=== PATIENT | female | born 1995 | race Caucasian/White ===

== ENCOUNTER 2020-05-14 13:43 | Outpatient (RCR) | payer OTHER, SELFPAY ==
[2020-05-14 14:56] LABS: Basophils Absolute Auto 0.1 K/mm3 (0.0-0.1); Basophils Percent Auto 0.5 % (0.2-1.2); Eosinophils Percent Auto 13.9 % (0-4.4); Hematocrit 45.7 % (37.0-47.0); Hemoglobin 15.1 g/dL (12.0-15.0); Immature Granulocyte Absolute 0.05 K/mm3 (0.00-0.031); Immature Granulocyte Percent A 0.4 % (0-0.5); Lymphocytes Absolute Auto 3.68 K/mm3 (0.9-3.2); Mean Corpuscular Hemoglobin 32.6 pg (26-34); Mean Corpuscular Volume 98.7 fl (80-100); Mean Platelet Volume 12.4 fl (7.4-10.4); Neutrophils Absolute Auto 7.4 K/mm3 (1.3-6.7); Neutrophils Percent Auto 52.2 % (45.5-73.1); Platelet Count Result 200 k/mm3 (150-375); Red Blood Count 4.63 M/mm3 (4.2-5.4); Red Cell Distribution Width 13.6 % (11.5-14.5); White Blood Count 14.1 K/mm3 (4.5-10.0)
[2020-05-14 15:04] LABS: Blood Urea Nitrogen 9 mg/dL (7-17); Calcium 9.3 mg/dL (8.4-10.2); Carbon Dioxide 26 mmol/L (22-30); Chloride 108 mmol/L (98-107); Estimated Glomerular Filt Rate > 60; Glucose 89 mg/dL (65-105); Potassium 4.4 mmol/L (3.4-5.0); Sodium 141 mmol/L (137-145)
[2020-05-14 15:22] LABS: Beta HCG Quantitative 246.05 mIU/ML
[2020-05-14] MEDS: METHOTREXATE SODIUM/PF 50 MG/2 ML VIAL 48.75 MG IM ×2 (15:32→15:35)
== END 2020-06-06 11:50 | disposition home or self-care (01) ==
LOC: ANHOBOP 13:43
PROVIDERS: PCP Physician Assistant; Visit Provider Obstetrics & Gynecology
DX: O02.1 Missed abortion (principal); Z3A.00 Weeks of gestation of pregnancy not specified
CPT/HCPCS: 36415; 80048; 84702; 85025; 96372; J9260

== ENCOUNTER 2020-05-20 20:10 | Day surgery (SDC) | payer OTHER, SELFPAY ==
--- NOTE | ~2020-05-20 | US_ITS ---
EXAMINATION: US OB <=14 wk fetus w TV DATE: 05/20/2020 21:46 INDICATION: Pelvic pain. Ectopic . Methotrexate treatment last week. TECHNIQUE: Real-time transabdominal and transvaginal pelvic ultrasound was performed. COMPARISON: None. FINDINGS: TRANSABDOMINAL ULTRASOUND: The uterus measures 6.2 x 3.3 cm. TRANSVAGINAL ULTRASOUND: The endometrial complex measures 3 mm in thickness. There is no intrauterine gestational sac. The right ovary measures 2.3 x 1.1 x 1.6 cm. The left ovary measures 2.6 x 1.3 x 2. 5 cm. There is a 1.7 cm mass abutting the left ovary. There is normal vascular flow in the ovaries. T here is a small volume of free fluid in the pelvis. IMPRESSION: 1. Small volume of free fluid in the pelvis. 2. 1.7 cm mass in the left adnexa adjacent to the ovary. The differential diagnosis includes hemorrha gic cyst and ectopic . Reviewed, dictated and finalized at location A. IMPRESSION: 1. Small volume of free fluid in the pelvis. 2. 1.7 cm mass in the left adnexa adjacent to the ovary. The differential diagn osis includes hemorrhagic cyst and ectopic .
[2020-05-20 20:24] VITALS: BP 113/76; PULSE 82; RESP 17; TEMP 36.8; O2SAT 100
[2020-05-20 20:47] LABS: Basophils Percent Auto 0.3 % (0.2-1.2); Eosinophils Absolute Auto 1.6 K/mm3 (0-0.3); Eosinophils Percent Auto 12.1 % (0-4.4); Hematocrit 42.1 % (37.0-47.0); Hemoglobin 14.2 g/dL (12.0-15.0); Immature Granulocyte Absolute 0.03 K/mm3 (0.00-0.031); Immature Granulocyte Percent A 0.2 % (0-0.5); Lymphocytes Absolute Auto 2.97 K/mm3 (0.9-3.2); Lymphocytes Percent Auto 22.4 % (18.3-44.2); Mean Corpuscular HGB Conc 33.7 g/dl (32-36); Mean Corpuscular Hemoglobin 32.6 pg (26-34); Mean Corpuscular Volume 96.6 fl (80-100); Mean Platelet Volume 12.4 fl (7.4-10.4); Monocytes Percent Auto 7.6 % (2.6-8.5); Neutrophils Absolute Auto 7.6 K/mm3 (1.3-6.7); Neutrophils Percent Auto 57.4 % (45.5-73.1); Platelet Count Result 186 k/mm3 (150-375); Red Blood Count 4.36 M/mm3 (4.2-5.4); Red Cell Distribution Width 13.5 % (11.5-14.5); White Blood Count 13.2 K/mm3 (4.5-10.0)
[2020-05-20 20:59] LABS: Alanine Aminotransferase 43 U/L (4-35); Albumin Level 4.1 g/dL (3.5-5.1); Alkaline Phosphatase 76 U/L (38-126); Aspartate Amino Transferase 32 U/L (14-36); Bilirubin,Total 0.3 mg/dL (0.2-1.3); Blood Urea Nitrogen 8 mg/dL (7-17); Calcium 8.9 mg/dL (8.4-10.2); Carbon Dioxide 22 mmol/L (22-30); Chloride 106 mmol/L (98-107); Estimated CRCL calculation 127 ml/min; Estimated Glomerular Filt Rate > 60; Glucose 102 mg/dL (65-105); Lipase 52 U/L (23-300); Potassium 3.7 mmol/L (3.4-5.0); Sodium 136 mmol/L (137-145)
--- NOTE | 2020-05-20 22:06 | ED.ABDPAIN ---
HPI - Abdominal Pain General Chief Complaint: Abdominal Pain Stated Complaint: lower abd cramping, pain in left leg Time Seen by Provider: 05/20/20 21:15 Source: patient Mode of arrival: ambulatory Limitations: no limitations History of Present Illness HPI narrative: This patient is a 24 year old female who is G2PO who presents for evaluation of left lower abdominal pain. She states she was diagnosed with an ectopic on the left and she was given an injection of methotrexate on Tuesday. Today she developed left lower abdominal pain cramping that has progressively worsened. She has been having mild vaginal spotting since diagnosis. She denies nausea, vomiting or fever. Her OBGYN is Dr. Mckeon and she reports she was referred to ER for pelvic ultrasound. Pain scale (0-10): 10 Related Data Allergies Allergy/AdvReac Type Severity Reaction Status Date / Time No Known Allergies Allergy Verified 05/20/20 23:53 Review of Systems Review of Systems: All systems reviewed & are unremarkable except as noted in HPI and below PMFSH Past Medical History Medical History Patient denies medical problems Surgical History Surgical History No significant past surgical history Social History Social History Gender identity (if verbalized by the patient): Female Exam Const: General: no acute distress and alert Orientation/consciousness: patient oriented x3 HENMT: Head: normocephalic and atraumatic Face and sinus: face symmetric Mouth: Yes oropharynx normal Eyes: EOM: EOMs intact bilaterally Chest: Chest palpation & inspection: normal inspection of the chest Resp: Effort & Inspection: normal respiratory effort and no retractions Auscultation: clear to auscultation bilaterally Cardio: Rate: regular rate Rhythm: regular rhythm GI: GI Palp: Yes Soft to palpation, Yes Tenderness to palpation present (GI) (LLQ), No Guarding due to palpation present (GI) and No Rigid due to palpation : Speculum Exam - Cervix: Cervical os closed Bimanual exam- vagina & uterus: cervical motion tenderness Skin: General skin exam: normal color Rashes: no rashes Neuro: General: patient oriented x3 and moves all extremities Course Consultations Consultation #1: Dr. liu states she will look at images and call back. Date: 05/20/20 Time: 22:33 Consultation #2: Dr. Liu will take patient to OR Date: 05/21/20 Time: 23:15 Vital Signs Vital signs: Vital Signs Temperature 98.3 F 05/20/20 20:24 Pulse Rate 82 05/20/20 20:24 Respiratory Rate 17 05/20/20 20:24 Blood Pressure 113/76 05/20/20 20:24 Pulse Oximetry 100 05/20/20 20:24 Temperature 97.8 F 05/21/20 01:45 Pulse Rate 83 05/21/20 03:26 Respiratory Rate 12 05/21/20 03:26 Blood Pressure 122/68 05/21/20 03:26 Pulse Oximetry 95 05/21/20 03:01 MDM - Abdominal Pain Lab Data Attestation: I reviewed the patient's lab results. Result diagrams: 05/20/20 20:31 05/20/20 20:31 Labs: Lab Results 05/20/20 05/20/20 05/20/20 Range/Units 20:31 20:31 20:31 WBC 13.2 H (4.5-10.0) K/mm3 RBC 4.36 (4.2-5.4) M/mm3 Hgb 14.2 (12.0-15.0) g/dL Hct 42.1 (37.0-47.0) % MCV 96.6 (80-100) fl MCH 32.6 (26-34) pg MCHC 33.7 (32-36) g/dl RDW 13.5 (11.5-14.5) % Plt Count 186 (150-375) k/mm3 MPV 12.4 H (7.4-10.4) fl Immature Gran % (Auto) 0.2 (0-0.5) % Neut % (Auto) 57.4 (45.5-73.1) % Lymph % (Auto) 22.4 (18.3-44.2) % Real % (Auto) 7.6 (2.6-8.5) % Eos % (Auto) 12.1 H (0-4.4) % Baso % (Auto) 0.3 (0.2-1.2) % Lymph # (Auto) 2.97 (0.9-3.2) K/mm3 Real # (Auto) 1.0 H (0.1-0.6) K/mm3 Eos # (Auto) 1.6 H (0-0.3) K/mm3 Baso # (Auto) 0.0 (0.0-0.1) K/mm3 Abs Immat Gran (auto
[2020-05-20] MEDS: ONDANSETRON INJ 4 MG/2 ML VIAL IV PUSH (22:23)
[2020-05-20] MEDS: MORPHINE SULFATE 4 MG/ML INJ 5 MG IV PUSH (22:23)
[2020-05-20 22:32] LABS: Add Urine Microscopic? YES; Appearance Urine Cloudy (Clear); Bacteria Urine Trace /hpf; Bilirubin Urine Negative (Negative); Blood Urine 3+ (Negative); Calcium Oxalate Crystals Urine Present /hpf; Color Urine Yellow (Yellow); Glucose Urine UA Negative (Negative); Ketones Urine Negative (Negative); Leukocyte Esterase Ur 2+ LEU/UL (Negative); Mucus Urine Moderate /lpf; Nitrate Urine Negative (Negative); Protein Urine 1+ mg/dL (Negative); RBC Urine >75 /hpf (0-2); Squamous Epithelial Cell Urine Many /hpf (Few); WBC Urine 51-75 /hpf
[2020-05-20 22:33] LABS: Specific Grav Ur 1.031 (1.001-1.035)
[2020-05-20 23:13] LABS: Beta HCG Quantitative 71.05 mIU/ML
--- NOTE | 2020-05-20 23:31 | WPDANESEPPF ---
Anes - Initial Pre Proc Eval Procedure: Diagnostic Laparoscopy Date/Time: 05/20/20 23:31 Surgeon: Ian Pre Op Diagnosis: Ectopic Pre Op Diagnosis: lower abd cramping, pain in left leg Patient Data Age: 24 Gender: F Height: 1.55 m Weight: 90 kg Last Vital Signs Temp 36.8 C 05/20/20 20:24 Pulse 82 05/20/20 20:24 Resp 17 05/20/20 20:24 BP 113/76 05/20/20 20:24 Pulse Ox 100 05/20/20 20:24 Allergies Allergy/AdvReac Type Severity Reaction Status Date / Time No Known Allergies Allergy Verified 05/20/20 23:53 Home Medications Medication Instructions Recorded Confirmed Type No Home Medications 05/20/20 05/20/20 History Laboratory Tests 05/20/20 05/20/20 05/20/20 20:31 20:31 20:31 WBC 13.2 K/mm3 H K/mm3 (4.5-10.0) RBC 4.36 M/mm3 M/mm3 (4.2-5.4) Hgb 14.2 g/dL g/dL (12.0-15.0) Hct 42.1 % % (37.0-47.0) MCV 96.6 fl fl (80-100) MCH 32.6 pg pg (26-34) MCHC 33.7 g/dl g/dl (32-36) RDW 13.5 % % (11.5-14.5) Plt Count 186 k/mm3 k/mm3 (150-375) MPV 12.4 fl H fl (7.4-10.4) Immature Gran % (Auto) 0.2 % % (0-0.5) Neut % (Auto) 57.4 % % (45.5-73.1) Lymph % (Auto) 22.4 % % (18.3-44.2) [place] % (Auto) 7.6 % % (2.6-8.5) Eos % (Auto) 12.1 % H % (0-4.4) Baso % (Auto) 0.3 % % (0.2-1.2) Lymph # (Auto) 2.97 K/mm3 K/mm3 (0.9-3.2) [place] # (Auto) 1.0 K/mm3 H K/mm3 (0.1-0.6) Eos # (Auto) 1.6 K/mm3 H K/mm3 (0-0.3) Baso # (Auto) 0.0 K/mm3 K/mm3 (0.0-0.1) Abs Immat Gran (auto) 0.03 K/mm3 K/mm3 (0.00-0.031) Absolute Neuts (auto) 7.6 K/mm3 H K/mm3 (1.3-6.7) Absolute Nucleated RBC 0.0 K/mm3 K/mm3 (0.0-0.012) Nucleated RBC % 0.0 % % (0.0-0.2) Sodium 136 mmol/L L mmol/L (137-145) Potassium 3.7 mmol/L mmol/L (3.4-5.0) Chloride 106 mmol/L mmol/L (98-107) Carbon Dioxide 22 mmol/L mmol/L (22-30) BUN 8 mg/dL mg/dL (7-17) Creatinine 0.60 mg/dL L mg/dL (0.7-1.0) Estim Creat Clear Calc 127 ml/min ml/min Estimated GFR > 60 (59 - ) Glucose 102 mg/dL mg/dL (65-105) Calcium 8.9 mg/dL mg/dL (8.4-10.2) Total Bilirubin 0.3 mg/dL mg/dL (0.2-1.3) AST 32 U/L U/L (14-36) ALT 43 U/L H U/L (4-35) Alkaline Phosphatase 76 U/L U/L (38-126) Total Protein 7.0 g/dL g/dL (6.3-8.2) Albumin 4.1 g/dL g/dL (3.5-5.1) Lipase 52 U/L U/L (23-300) Beta HCG, Quant 71.05 mIU/ML mIU/ML Urine Color Urine Appearance Urine pH Ur Specific [place] Urine Protein Urine Glucose (UA) Urine Ketones Ur Blood (Man) Urine Nitrate Urine Bilirubin Urine Urobilinogen Leukocyte Esterase Rfl Urine RBC Urine WBC Ur Squamous Epith Cells Calcium Oxalate Crystal Urine Bacteria Hyaline Casts Urine Mucus Blood Type Antibody Screen 05/20/20 05/20/20 22:16 22:16 WBC RBC Hgb Hct MCV MCH MCHC RDW Plt Count MPV Immature Gran % (Auto) Neut % (Auto) Lymph % (Auto) [place] % (Auto) Eos % (Auto) Baso % (Auto) Lymph # (Auto) [place] # (Auto) Eos # (Auto) Baso # (Auto) Abs Immat Gran (auto) Absolute Neuts (auto) Absolute Nucleated RBC Nucleated RBC % Sodium Potassium Chloride Carbon Dioxide
[2020-05-21] VITALS (9 sets, daily range): BP systolic 107–131; BP diastolic 68–87; PULSE 76–108; RESP 12–23; TEMP 36.6; O2SAT 93–99
--- NOTE | 2020-05-21 00:03 | PM.IMHP ---
H&P: HPI History of Present Illness Chief complaint: lower abd cramping, pain in left leg Narrative: Felicitas Rahman is a 24 year old female @ ~4wks with suspected ectopic. She received MTX on 05/14/20 after abnormally rising beta HCG's were noted and had a left adnexal mass. Tonight, she began having LLQ pain and took Tylenol. She stated that the pain only became more severe. Repeat US now shows free fluid around the left ovary and in the pelvis to the mid/upper uterus. She reports her pain 10/10. On ER physician vaginal exam, she had mild vaginal spotting and + CMT. She has voluntary guarding. bHCG has declined to 71. Review of Systems Constitutional: Constitutional: Denies body ache(s) Eyes: Eyes: Denies blurry vision Cardiovascular: Cardiovascular: Denies chest pain and Denies palpitations Respiratory: Respiratory: Denies cough and Denies dyspnea Gastrointestinal: Gastrointestinal: Reports abdominal pain (LLQ), Denies nausea and Denies vomiting Genitourinary: Comments: + vaginal spotting Neurologic: Denies vertigo and Denies headache(s) Psychiatric: Psychiatric: Denies anxiety PMFSH Past Medical History Medical History Patient denies medical problems Surgical History Surgical History No significant past surgical history Social History Social History Gender identity (if verbalized by the patient): Female Meds Home Medications and Allergies Home Medications Medication Instructions Recorded Confirmed Type No Home Medications 05/20/20 05/20/20 History Allergies Allergy/AdvReac Type Severity Reaction Status Date / Time No Known Allergies Allergy Verified 05/20/20 23:53 Vital Signs Vital Signs - 24 hr 05/20/20 20:24 Temperature 36.8 C Pulse Rate 82 Respiratory Rate 17 Blood Pressure 113/76 Pulse Oximetry 100 Exam Const: General: no acute distress Resp: Effort & Inspection: normal respiratory effort Cardio: Rate: regular rate GI: Inspection: non-distended GI Palp: Yes Soft to palpation, No Firmness to palpation present (GI), Yes Tenderness to palpation present (GI) and Yes Guarding due to palpation present (GI) Skin: General skin exam: normal color Neuro: Speech: normal speech Psych: Affect: normal affect H&P: Results Labs Labs: Short CBC 05/20/20 Range/Units 20:31 WBC 13.2 H (4.5-10.0) K/mm3 Hgb 14.2 (12.0-15.0) g/dL Hct 42.1 (37.0-47.0) % Plt Count 186 (150-375) k/mm3 BMP 05/20/20 20:31 Sodium 136 L Potassium 3.7 Chloride 106 Carbon Dioxide 22 BUN 8 Creatinine 0.60 L Glucose 102 Calcium 8.9 Liver Function 05/20/20 Range/Units 20:31 Total Bilirubin 0.3 (0.2-1.3) mg/dL AST 32 (14-36) U/L ALT 43 H (4-35) U/L Alkaline Phosphatase 76 (38-126) U/L Albumin 4.1 (3.5-5.1) g/dL Urine 05/20/20 Range/Units 22:16 Urine Color Yellow (Yellow) Urine Appearance Cloudy H (Clear) Urine pH 5.0 (5.0-9.0) Ur Specific [place] 1.031 (1.001-1.035) Urine Protein 1+ H (Negative) mg/dL Urine Glucose (UA) Negative (Negative) mg/dL Assessment and Plan Assessment and plan (1) Ectopic , tubal: Qualifiers: Intrauterine status: without intrauterine Laterality: left Qualified Code(s): O00.102 - Left tubal without intrauterine Code(s): O00.109 - Unspecified tubal without intrauterine Status: Acute Additional Plan - On review of US, pt noted to have free fluid around left ovary and to the mid/upper uterus. With new onset severe pain after methotrexate 7 days ago, concerned for ruptured tubal ectopic - Vitals currently stable - H/h noted to have drop 1 point since last week - Will proceed with diagnost
[2020-05-21] MEDS: LACTATED RINGERS 1,000 ML 30 ML IV CONT (00:30)
--- NOTE | 2020-05-21 01:53 | PM.PROC ---
Procedure Note - Detailed Date of procedure: 05/21/20 Pre-op diagnosis: lower abd cramping, pain in left leg suspected ruptured left tubal ectopic Post-op diagnosis: other (ruptured left ectopic ) Procedure performed: diagnostic laparoscopy and left salpingectomy Description of procedure: Patient was counseled for the above procedure. She was then taken the operating room where she was placed under general endotracheal anesthesia without complications. She was positioned in dorsal lithotomy position with both arms tucked. she was then prepped and draped in the usual sterile fashion. No antibiotics were indicated and a time-out was performed. the bladder was drained using a straight catheter. A bivalve speculum was then placed within the vagina and the anterior lip of the cervix was grasped with a single-tooth tenaculum. The uterus sounded to 7 cm and a diagnostic uterine manipulator was placed without complications. The tenaculum and speculum were then removed. My gloves were then changed and my attention was turned to the umbilicus, which was elevated using Allis clamps. An incision was made in the posterior aspect of the umbilicus. Penetrating towel clamps were then placed at the incision and a 5 mm trocar was placed under direct visualization. once intra-abdominal placement was confirmed the abdomen was insufflated with carbon dioxide gas. The patient was placed in slight Trendelenburg. The uterus was anteverted using the manipulator and hemoperitoneum was immediately noted. Decision was then made to proceed with additional port placements. 5 mm trocars were placed in the left and right lower quadrants under direct visualization without complications and the umbilical port was upsized to a 10 mm port. using a grasper and the left fallopian tube was elevated and 2 masses ( suspected ectopic pregnancies) were noted and bleeding was noted from the fimbriated end. the mesosalpinx was serially clamped, coagulated, and transected paying close attention not to injure the uterine ovarian artery/vein. the fallopian tube was then transected at the cornua. a Endo-Catch bag was then placed within the abdomen and the fallopian tube was placed within the bag. the bag was then removed out the umbilical port with the specimen. the hemoperitoneum was suctioned out of the pelvis. the pelvis was then irrigated and suctioned free. Good hemostasis was noted. Abdominal survey was completed and no additional abnormal findings were noted. The instruments were removed and the insufflation was released. The umbilical incision was repaired in a figure-eight using a 0 Vicryl UR6 stitch. the laparoscopic incisions were then reapproximated using 4 Monocryl and covered with Dermabond. Each laparoscopic incision was infiltrated with 1% lidocaine, approximately 20 cc was used. the uterine manipulator was then removed from the uterus. sponge, lap, needle, and instrument counts were correct x2 at the end the procedure. the patient tolerated the procedure well and was taken recovery in a stable condition with plans to be discharged home same-day. Anesthesia: GETA Surgeon: Ruchi Sosa MD Estimated blood loss (mL): 50 (hemoperitoneum) Urine output (mL): 100 Drains: No Packing: No Pathology: yes Complications: No immediate complications Condition: stable Disposition: same day Findings: ~50cc of hemoperitoneum, left fallopian tubes with two masses (possible ectopic's) with blood coming from the fimbriated end, normal uterus (sounded to 7cm), normal left ovary, normal right fallopian tube and ovary. Blood and clots suction and abdomen irrigated. Good hemostasis at end of case.
[2020-05-21] MEDS: ONDANSETRON INJ 4 MG/2 ML VIAL IV PUSH (03:22)
== END 2020-05-21 03:48 | disposition home or self-care (01) ==
LOC: ANHED 23:32 → ANHSURGERY 23:41
PROVIDERS: Emergency Medicine; Emergency Provider General Practice; PCP Physician Assistant; Visit Provider Obstetrics & Gynecology
PROC: (CPT 49320; principal; 2020-05-20 00:30)
DX: O00.102 Left tubal pregnancy without intrauterine pregnancy (principal); E66.9 Obesity, unspecified; Z68.37 Body mass index [BMI] 37.0-37.9, adult
CPT/HCPCS: 59151; 36415; 76801; 76817; 80053; 81001; 83690; 84702; 85025; 86850; 86900; 86901; 87086; 87088; 88302; 88305; 96374; 96375; 99285; A9270; J0330; J1100; J2250; J2270; J2405; J2704; J7030; J7120

== ENCOUNTER 2021-12-19 21:40 | Emergency (ER) | payer OTHER, MEDICAID, SELFPAY ==
[2021-12-19 21:41] VITALS: BP 130/69; PULSE 124; RESP 18; TEMP 37.6; O2SAT 100
[2021-12-19] MEDS: SODIUM CHLORIDE 0.9% IV 1,000 ML 999 ML IV CONT (22:37)
[2021-12-19 23:07] LABS: Add Urine Microscopic? YES; Appearance Urine Clear (Clear); Bacteria Urine Trace /hpf; Bilirubin Urine Negative (Negative); Blood Urine Negative (Negative); Color Urine Yellow (Yellow); Glucose Urine UA Negative (Negative); Ketones Urine Negative (Negative); Leukocyte Esterase Ur 1+ LEU/UL (Negative); Mucus Urine Rare /lpf; Nitrate Urine Negative (Negative); Protein Urine Negative (Negative); Specific Grav Ur 1.018 (1.001-1.035); Squamous Epithelial Cell Urine Moderate /hpf (Few); Urobilinogen Urine Negative mg/dL (<2.0)
[2021-12-19 23:16] LABS: SARS-CoV-2 RNA PCR Positive
--- NOTE | 2021-12-19 23:48 | ED.FEVER ---
HPI - Fever General Chief Complaint: Fever Stated Complaint: Fever, 11 weeks preg Time Seen by Provider: 12/19/21 22:01 History of Present Illness HPI Narrative: Patient is a 26-year-old female who presents ER with fever. Ongoing over the last day. Highest was 101.0 ?F. Did not respond to Tylenol so she came to the ER. Reports she has had fatigue x2 days. Rhinorrhea began today. No cough. No known sick contacts. Unvaccinated against COVID-19. She is currently 11 weeks . No lower abdominal discomfort. No vaginal bleeding. Denies urinary frequency urgency or dysuria. Related Data Home Medications Medication Instructions Recorded Confirmed levothyroxine 50 12/19/21 Allergies Allergy/AdvReac Type Severity Reaction Status Date / Time No Known Allergies Allergy Verified 12/19/21 21:57 Review of Systems Review of Systems: All systems reviewed & are unremarkable except as noted in HPI and below Constitutional: Constitutional: Denies chills, Reports fatigue and Reports fever(s) ENT: Denies sore throat Comments: Rhinorrhea Respiratory: Respiratory: Denies cough, Denies dyspnea and Denies wheezing Gastrointestinal: Gastrointestinal: Denies abdominal pain, Denies nausea and Denies vomiting Genitourinary: Genitourinary: Denies nocturia, Denies dysuria and Denies flank pain PMFSH Past Medical History Medical History (Updated 12/19/21 @ 23:58 by Macario Rose MD) Patient denies medical problems Surgical History Surgical History No significant past surgical history Social History Social History Gender identity (if verbalized by the patient): Female Exam Narrative: GENERAL: Well-appearing, well-nourished, and in no acute distress. HEAD: Normocephalic, atraumatic. CHEST: Clear to auscultation. No respiratory distress. HEART: Tachycardic and regular. Normal peripheral pulses. ABDOMEN: Soft, nontender, nondistended. EXTREMITIES: Normal range of motion. No edema. SKIN: Warm, dry, no rash. NEURO: Alert and oriented x3. PSYCH: Normal mood and affect. Course Course Emergency Course: Patient resting comfortably. Informed results. Discharge home. Vital Signs Vital signs: Vital Signs Temperature 99.7 F H 12/19/21 21:41 Pulse Rate 124 H 12/19/21 21:41 Respiratory Rate 18 12/19/21 21:41 Blood Pressure 130/69 12/19/21 21:41 Pulse Oximetry 100 12/19/21 21:41 Temperature 99.7 F H 12/19/21 21:41 Pulse Rate 124 H 12/19/21 21:41 Respiratory Rate 18 12/19/21 21:41 Blood Pressure 130/69 12/19/21 21:41 Pulse Oximetry 100 12/19/21 21:41 MDM - Fever Lab Data Labs: Lab Results 12/19/21 12/19/21 Range/Units 22:30 22:30 Urine Color Yellow (Yellow) Urine Appearance Clear (Clear) Urine pH 5.0 (5.0-9.0) Ur Specific [place] 1.018 (1.001-1.035) Urine Protein Negative (Negative) mg/dL Urine Glucose (UA) Negative (Negative) mg/dL Urine Ketones Negative (Negative) mg/dL Ur Blood (Man) Negative (Negative) Urine Nitrate Negative (Negative) Urine Bilirubin Negative (Negative) Urine Urobilinogen Negative (<2.0) mg/dL Leukocyte Esterase Rfl 1+ H (Negative) JANET/UL Urine RBC 3-5 H (0-2) /hpf Urine WBC 4-6 H /hpf Ur Squamous Epith Cells Moderate H (Few) /hpf Urine Bacteria Trace /hpf Urine Mucus Rare /lpf SARS-CoV-2 RNA (RT-PCR) Positive A Influenza A Screen Negative Reference Range: Negative Influenza B Screen Negative Reference Range: Negative Discharge Plan Discharge Clinical Impression: COVID Patient Disposition: Home, Self-Care Condition: Stable Instructions: COVID-19 (Coronavirus Disease 2019) (ED) Additional Instructions: You hav
[2021-12-20 00:06] VITALS: PULSE 100; RESP 18; TEMP 36.9; O2SAT 98
== END 2021-12-20 00:05 | disposition home or self-care (01) ==
PROVIDERS: Emergency Provider Emergency Medicine; PCP Physician Assistant
DX: O98.511 Other viral diseases complicating pregnancy, first trimester (principal); U07.1 COVID-19; Z3A.11 11 weeks gestation of pregnancy
CPT/HCPCS: 81001; 87804; 96360; 99283; C9803; J7030; U0003; U0005

== ENCOUNTER 2022-01-30 13:58 | Observation (INO) | payer OTHER, SELFPAY ==
--- NOTE | ~2022-01-30 | US_ITS ---
EXAMINATION: US OB limited EXAM DATE: 01/30/2022 15:24 INDICATION: Check placenta; vaginal bleeding. . 2nd trimester. TECHNIQUE: Pelvic obstetrical transabdominal sonogram was performed by a technologist. There are mu ltiple grayscale and Doppler images available for interpretation. There are no earlier studies of th is gestation for comparison. FINDINGS: There is live intrauterine gestation with heart rate 145 bpm. Placenta is anteriorly located. Subjectively expected amount of amniotic fluid. Transverse lie. There is prominent myometrium along the anterior inferior aspect of uterus, possible lower uterine co ntraction. On the final cine loop saved there is some cervical funneling and fluid extending into the internal cervical os up to about 5 mm in thickness. No definite retroplacental hemorrhage identified on this exam. IMPRESSION: Anteriorly located placenta with mildly heterogeneous, prominent inferior marginal myomet rium which could be contraction. Some cervical funneling with fluid in the internal cervical os. No d efinite retroplacental fluid/abruption but follow-up is recommended. I can be reached at [phone] with any questions. Reviewed, dictated and finalized at location . IMPRESSION: Anteriorly located placenta with mildly heterogeneous, prominent in ferior marginal myometrium which could be contraction. Some cervical funneling with fluid in the internal cervical os. No definite retroplacental fluid/abrupt ion but follow-up is recommended. I can be reached at [phone] with any questions.
[2022-01-30 14:29] VITALS: PULSE 72; O2SAT 97
[2022-01-30 14:34] VITALS: PULSE 80; O2SAT 98
[2022-01-30 14:39] VITALS: PULSE 70; O2SAT 98
[2022-01-30 14:42] VITALS: BP 112/71; PULSE 72; PULSE 75; RESP 16; TEMP 37.3; O2SAT 98; BMI 38.2
--- NOTE | 2022-01-30 14:42 | OBADM ---
This patient, Felicitas Rahman, admitted to the OB room 116 for observation for vaginal bleeding. Patient/family oriented to hospital policies and general routines including ID bracelet, bed and alarms, visiting hours, pain management, procedures, bathroom and other care routines, personal items, smoking policy, room service/diet, and visiting hours. Patient/Family are encouraged to report perceived risks to care and to ask questions if they do not understand what they are told or what they should do.
--- NOTE | 2022-01-30 14:47 | PC.NURSE ---
Dr. Rankin informed of this pt's arrival at 17 2/7 wks with bright red vaginal bleeding and a hx of subchorionic hemorrhage. Pt states she saturated a peripad at home and the thin full size pad that pt wore into the hospital is approximately 1/4 saturated with bright red blood. FHT's obtained first with doppler and then hand held U/S transducer for 10 mins- FHT's 145. Pt's blood type is O positive ( from prior [facility] visit). Order received for U/S.
--- NOTE | 2022-01-30 16:06 | PC.NURSE ---
Dr. Rankin informed of U/S report. questioned whether a cervical length had been performed.
--- NOTE | 2022-01-30 16:09 | PC.NURSE ---
Spoke with the radiologist Dr. Fitzpatrick and asked if a cervical length had been measured on the U/S. He reviewed the images and noted one with a cervical length of 5.2 cm and will add an addendum to the U/S report.
--- NOTE | 2022-01-30 16:12 | PC.NURSE ---
Dr. Rankin informed of cervical length (5.2 cm) Discussed center of peripad is saturated with bright red blood. Plan to weigh pads. Order received for CBC and to continue watching pt's bleeding.
[2022-01-30 16:36] VITALS: BP 97/57; PULSE 70; RESP 18; TEMP 37.1; O2SAT 100
[2022-01-30 16:37] VITALS: BP 97/57; PULSE 70; PULSE 76; O2SAT 100
[2022-01-30 16:44] LABS: Basophils Percent Auto 0.1 % (0.2-1.2); Eosinophils Absolute Auto 0.1 K/mm3 (0-0.3); Eosinophils Percent Auto 0.6 % (0-4.4); Hematocrit 34.8 % (37.0-47.0); Hemoglobin 11.7 g/dL (12.0-15.0); Immature Granulocyte Absolute 0.05 K/mm3 (0.00-0.031); Immature Granulocyte Percent A 0.4 % (0-0.5); Lymphocytes Absolute Auto 3.02 K/mm3 (0.9-3.2); Lymphocytes Percent Auto 26.6 % (18.3-44.2); Mean Corpuscular HGB Conc 33.6 g/dl (32-36); Mean Corpuscular Hemoglobin 32.7 pg (26-34); Mean Corpuscular Volume 97.2 fl (80-100); Mean Platelet Volume 11.7 fl (7.4-10.4); Monocytes Absolute Auto 0.9 K/mm3 (0.1-0.6); Monocytes Percent Auto 7.5 % (2.6-8.5); Neutrophils Absolute Auto 7.4 K/mm3 (1.3-6.7); Neutrophils Percent Auto 64.8 % (45.5-73.1); Platelet Count Result 202 k/mm3 (150-375); Red Blood Count 3.58 M/mm3 (4.2-5.4); Red Cell Distribution Width 13.2 % (11.5-14.5); White Blood Count 11.4 K/mm3 (4.5-10.0)
--- NOTE | 2022-01-30 20:32 | PC.NURSE ---
RN to bedside to discuss further plan of care. Patient used restroom with less than 1 cc of bleeding on vaginal pad when weighed, but did report dark blood when wiped after urination. Dr. Rankin called and updated on patient's status and current bleeding. Per Dr. Rankin, patient may be discharged home with close follow up in the office within the next week. Educated patient to return back to hospital if bleeding picks back up in frequency/amount. Patient verbalized understanding and agrees with plan of care.
--- NOTE | 2022-01-30 21:19 | PC.NURSE ---
Patient discharged to home in stable condition at 2054. Patient educated to call back with any concerns or questions. Educated patient to come back to OB dept if bleeding increases.
--- NOTE | 2022-02-02 07:35 | P.PNOB_ITS ---
OB - Triage/Final Diagnosis Visit Information Comments/Additional reasons for admission: I have assessed the risk for this patient, Felicitas Rahman, and determined that she would benefit from observation care. Evaluation Laboratory results: Laboratory Tests 01/30/22 16:35 WBC 11.4 H RBC 3.58 L Hgb 11.7 L Hct 34.8 L MCV 97.2 MCH 32.7 MCHC 33.6 RDW 13.2 Plt Count 202 MPV 11.7 H Immature Gran % (Auto) 0.4 Neut % (Auto) 64.8 Lymph % (Auto) 26.6 [place] % (Auto) 7.5 Eos % (Auto) 0.6 Baso % (Auto) 0.1 L Lymph # (Auto) 3.02 [place] # (Auto) 0.9 H Eos # (Auto) 0.1 Baso # (Auto) 0.0 Abs Immat Gran (auto) 0.05 H Absolute Neuts (auto) 7.4 H Absolute Nucleated RBC 0.0 Nucleated RBC % 0.0 Final Diagnosis (1) Vaginal bleeding during : Code(s): O46.90 - Antepartum hemorrhage, unspecified, unspecified trimester Status: Acute
== END 2022-01-30 20:55 | disposition home or self-care (01) ==
PROVIDERS: Admitting Provider Obstetrics & Gynecology; PCP Physician Assistant; Visit Provider Obstetrics & Gynecology
DX: O46.92 Antepartum hemorrhage, unspecified, second trimester (principal); Z3A.17 17 weeks gestation of pregnancy
CPT/HCPCS: 36415; 76815; 85025; G0378; G0379

== ENCOUNTER 2022-04-06 07:49 | Outpatient (CLI) | payer OTHER, SELFPAY ==
--- NOTE | ~2022-04-06 | US_ITS ---
US abdomen limited INDICATION: Lipoprotein deficiency PROCEDURE: Realtime right upper abdominal ultrasound. COMPARISON: No prior studies for comparison. FINDINGS: The pancreas is normal without focal mass or pancreatic ductal dilation. Liver echotexture is normal without focal mass or intrahepatic biliary dilatation. There is normal directional flow i n the portal vein. There is an echogenic foci at the gallbladder neck which does not definitely shadow. No gallbladder w all thickening or pericholecystic fluid. Common bile duct measures 4 mm. No sonographic Gasca's si gn. IMPRESSION: 1: Echogenic nonshadowing foci in the gallbladder neck which may represent gallbladder polyp, sludge or stone. Reviewed, dictated and finalized at location A. IMPRESSION: 1: Echogenic nonshadowing foci in the gallbladder neck which may represent gall bladder polyp, sludge or stone.
== END 2022-04-06 07:50 | disposition home or self-care (01) ==
LOC: ANHIMG 07:54
PROVIDERS: PCP Physician Assistant; Visit Provider Obstetrics & Gynecology
DX: E78.6 Lipoprotein deficiency (principal)
CPT/HCPCS: 76705

== ENCOUNTER 2022-06-02 18:11 | Inpatient (IN) | payer OTHER, SELFPAY ==
[2022-06-02] VITALS (72 sets, daily range): BP systolic 116–144; BP diastolic 46–100; PULSE 57–238; TEMP 36.3–37.1; O2SAT 98–100
--- OUTSIDE RECORDS SUMMARY | 2022-06-02 18:18 | XMS_ITS | Encounter Summary ---
:1995 Author Care Team Providers Name Role Phone Rain STERN Primary Care Provider [phone] Reason for Visit None recorded. Assessment and Plan 1. Pre-existing maternal disease compli cating ? US, obstetric, follow-up Discussion Note: None recorded.Patient educational handouts: No information available. Plan of Care Reminders Provider Appointments Ob Routine 06/03/2022 11:15AM Becky E Teresa ngle, CNM ? Nst 06/04/2022 10:00AM Nst, , EQUI P ? Nst 06/08/2022 10:30AM Nst, , EQUI P ? Nst 06/11/2022 10:00AM Nst, , EQUI P ? Ob Routine 06/11/2022 10:30AM Becky E Teresa ngle, CNM ? Nst 06/15/2022 10:30AM Nst, , EQUI P ? Nst 06/18/2022 10:00AM Nst, , EQUI P ? Ob Routine 06/18/2022 10:45AM Becky E Teresa ngle, CNM ? Nst 06/22/2022 10:30AM Nst, , EQUI P ? U/s Ob Growth 06/25/2022 10:30AM Ultrasound Two, TECH ? Ob Routine 06/25/2022 11:00AM Becky E Teresa ngle, CNM ? Nst 06/25/2022 10:00AM Nst, , EQUI P ? Nst 06/29/2022 10:30AM Nst, , EQUI P ? Ob Routine 07/02/2022 10:45AM Becky E Teresa ngle, CNM ? Nst 07/02/2022 10:00AM Nst, , EQUI P ? Nst 07/06/2022 10:30AM Nst, , EQUI P ? Ob Routine 07/09/2022 10:30AM Becky E Teresa ngle, CNM ? Nst 07/09/2022 10:00AM Nst, , EQUI P ? Nst 07/13/2022 10:30AM Nst, , EQUI P ? Ob Routine 07/16/2022 10:30AM Becky spear, CNM ? Nst 07/16/2022 10:00AM Nst, , EQUI P ? 3Hr Glucose on or around Danya miller MD 08/19/2022 ? [facility] on or around Jesika smith, 10/27/2022 NP-BC
--- OUTSIDE RECORDS SUMMARY | 2022-06-02 18:18 | XMS_ITS ---
:1995 Author Care Team Providers Name Role Phone Rain Sandoval Primary Care Provider Unavailable Allergies Code Code System Name Reaction Severity Status Onset NKDA ? Medications Name Status Start Date Stop Date ? ? acetaminophen 300 mg-codeine 30 mg tablet Unknown ? Not available albuterol sulfate 2.5 mg/3 mL (0.083 %) solution for nebulizatio n Completed ? 06/27/2018 Inhale 3 mL every day by nebulization route. albuterol sulfate HFA 90 mcg/actuation aerosol inhaler Active ? Not available INHALE 2 PUFFS BY MOUTH EVERY 4 TO 6 HOURS NEEDED amoxicillin 250 mg capsule Unknown ? Not a vailable amoxicillin 875 mg tablet Completed ? 2018 TK 1 T PO Q 12 H amoxicillin 875 mg-potassium clavulanate 125 mg tablet Completed ? 08/09/2019 TK 1 T PO BID Baby Aspirin 81 mg chewable tablet Active ? Not available Chew 1 tablet every day by oral route. biotin Completed 09/29/2016 08/09/2019 takes daily cefdinir 300 mg capsule Completed ? 06/26/20 18 cephalexin 500 mg capsule Completed ? 2018 TK ONE C PO TID TAT citalopram 10 mg tablet Completed ? 08/07/20 18 citalopram 20 mg tablet Active ? Not avai lable DOK 100 mg capsule Completed ? 08/13/2020 TK ONE C PO BID X 10 DAYS Estarylla 0.25 mg-35 mcg tablet Completed ? 08/09/2019 hydrocodone 5 mg-acetaminophen 325 mg tablet Completed ? 08/13/2020 TK 1 T PO Q 6 H PRF SEVERE PAIN hydrocodone 7.5 mg-acetaminophen 325 mg tablet Completed ? 10/12/2021 TAKE 1 TABLET BY MOUTH EVERY 8 HOURS NEEDED FOR PAIN.
--- OUTSIDE RECORDS SUMMARY | 2022-06-02 18:18 | XMS_ITS | Encounter Summary ---
:1995 Author Reason for Visit 6 month follow up routine f/u appt Assessment and Plan 1. Mood swings stable on citalopram 20mg daily. 2. Hypothyroidism on supplement from ob/gyne 3. Hypolipidemia hx noted 4. 27 weeks . Discussion Note: None recorded.Patient educational handouts: No information available. Plan of Care Reminders Provider Appointments Physical/Annual Wellness 10/22/2022 1:30PM JARRED Baldwin 15 Lab None recorded. ? ? Referral None recorded. ? ? Procedures None recorded. ? ? Surgeries None recorded. ? ? Imaging None recorded. ? ? Medications Name Start Date ? ? albuterol sulfate HFA 90 mcg/actuation aerosol inhaler ? INHALE 2 PUFFS BY MOUTH EVERY 4 TO 6 HOURS NEEDED Baby Aspirin 81 mg chewable tablet ? Chew 1 tablet every day by oral route. citalopram 20 mg tablet ? TAKE 1 TABLET BY MOUTH EVERY DAY levothyroxine 50 mcg tablet ? TAKE 1/2 TABLET BY MOUTH DAILY FOR 1 WEEK THEN TAKE 1 TABLET BY MOUTH DAILY vit 10-iron fum-folic ? progesterone micronized 200 mg capsule ? INSERT 1 CAPSULE IN THE VAGINA AT BEDTIME Vitamin D2 1,250 mcg (50,000 unit) capsule ? Take by oral route. Notes: Takes ibuprofen PRN Medications Administered None recorded. Vitals Height Weight BMI Blood Pressure 5 ft 2 in 228 lbs 41.7 kg/m2 110/64 mm[Hg] Results Lab Results None recorded. A
--- OUTSIDE RECORDS SUMMARY | 2022-06-02 18:18 | XMS_ITS ---
:1995 Author Care Team Providers Name Role Phone DEVORA STERN Primary Care Provider [phone] Allergies Code Code System Name Reaction Severity Status Onset NKDA ? Medications Name Status Start Date Stop Date ? ? albuterol sulfate HFA 90 mcg/actuation aerosol inhaler Active ? Not available INHALE 2 PUFFS BY MOUTH EVERY 4 TO 6 HOURS NEEDED citalopram 20 mg tablet Active ? Not avai lable TAKE 1 TABLET BY MOUTH EVERY DAY Humulin N NPH U-100 Insulin (isophane susp) 100 unit/mL subcutan eous Active ? Not available INJECT 5 UNITS UNDER THE SKIN EVERY NIGHT AT BEDTIME hydrocodone 7.5 mg-acetaminophen 325 mg tablet Active ? Not available insulin syringe U-100 with needle 0.3 mL 31 gauge x 5/16 Active ? Not available USE WITH INSULIN EVERY NIGHT insulin syringe/0.3ml/31g x 5/16 31g x 5/16 0.3 ml misc Active ? Not available levothyroxine 50 mcg tablet Active ? Not available levothyroxine 88 mcg tablet Active ? Not available TAKE 1 TABLET BY MOUTH EVERY DAY OneTouch Delica Plus Lancet 33 gauge Active ? Not available OneTouch Ultra Test strips Active ? Not a vailable CHECK FASTING AND 1 HOUR AFTER MEALS OneTouch Ultra2 Meter Active ? Not availa ble USE FOUR TIMES DAILY Active ? Not available progesterone micronized 200 mg capsule Active ? Not available Unisom (diphenhydramine) Active ? Not ivonne ilable Notes: Vitamin B6 Problems Name Status Onset Date Source ? Active 12/28/2021 ? Hypolipoproteinemia Active 03/22/2022 ?
--- OUTSIDE RECORDS SUMMARY | 2022-06-02 18:18 | XMS_ITS | Encounter Summary ---
:1995 Author Care Team Providers Name Role Phone Rain SETRN Primary Care Provider [phone] Reason for Visit OB visit OB [id number] EDC 07/08/2022 LMP 09/17/2021 Assessment and Plan Assessment Note Patient is _34__weeks . Discuss ed plan. 1. Routine care Discussion Note: None recorded.Patient educational handouts: No information available. Plan of Care Reminders Provider Appointments Ob Routine 06/03/2022 11:15AM Becky E Teresa ngle, CNM ? Nst 06/04/2022 10:00AM Nst, , EQUI P ? Nst 06/08/2022 10:30AM Nst, , EQUI P ? Nst 06/11/2022 10:00AM Nst, , EQUI P ? Ob Routine 06/11/2022 10:30AM Ebcky E Teresa ngle, CNM ? Nst 06/15/2022 [...] P ? Ob Routine 07/09/2022 10:30AM Becky Elmira Moore ngle, CNM ? Nst 07/09/2022 10:00AM Nst, , EQUI P ? Nst 07/13/2022 10:30AM Nst, , EQUI P ? Ob Routine 07/16/2022 10:30AM Beckymaryse Moore ngle, CNM ? Nst 07/16/2022 10:00AM Nst, , EQUI P ? 3Hr Glucose on or around 08/19/2022 Danya Rankin MD ?
--- OUTSIDE RECORDS SUMMARY | 2022-06-02 18:18 | XMS_ITS | Encounter Summary ---
:1995 Author Care Team Providers Name Role Phone Rain STERN Primary Care Provider [phone] Reason for Visit nst [id number] EDC 07/08/2022 Assessment and Plan 1. Hypothyroidism ? non-stress test Discussion Note: None recorded.Patient educational handouts: No [...] ? Ob Routine 07/16/2022 10:30AM Becky spear, SEBASTIANM ? Nst 07/16/2022 10:00AM Nst, , EQUI P ? 3Hr Glucose on or around Danya miller MD 08/19/2022 ? [facility] on or around Jesika smith, 10/27/2022 NP-BC Lab None recorded.
--- OUTSIDE RECORDS SUMMARY | 2022-06-02 18:19 | XMS_ITS | Encounter Summary ---
:1995 Author Care Team Providers Name Role Phone Rain STERN Primary Care Provider [phone] Reason for Visit None recorded. Assessment and Plan 1. Gestational diabetes mellitus, class A>1< Informed pt of results, explained in de pth what the high levels mean, how her body is not processing the sugars correctly and this does rule her in for GDM. Pt states she has no history of GDM, but it runs in her family and she already check s her sugars randomly and has yearly checks with her PCP, one due in October that is already scheduled. Spoke with patient about diet changes an d how to adjust meals to decrease carbs and increase protein and healthy fats. Advised to continue low sugar, low carb diet, and higher proteins. Reviewed differe nt meal adjustments and ways to decrease carbs with still getting all of the nutrients she needs. Advised to follow 3 meals a day with snacks in between meals with importance on the bedtime snack - advi sed more like 6 small frequent meals thr oughout the day and where her body is getting nutrition every 2-3 hours. Reviewed nutritional label with patient and how to count carbs for each meal. Advised to be conscientious of meals and record anshu ds that increase her levels and to avoid those types of foods. Reviewed acceptable drinks for patient and what to avoid. Advised to continue checking blood sugar s four times daily fasting and 1 hour after breakfast, lunch, and dinner. All supplies called into pharmacy on file, confirmed with patient. Pt states she is stil l waiting for her glucometer to be ready for pick, but confirms she does know how to use the glucometer and we reviewed when to check levels and what level we are looking to stay in for normal ranges. P t to call pharmacy after visit to see if ready or if there is something we need to complete to get pt the supplies she needs. Advised to continue to record all levels and bring to all appointments from here on out to review with MD. Advised will monitor diet controlled and assess the need for insulin administration if levels are trending high without the help of diet.
--- OUTSIDE RECORDS SUMMARY | 2022-06-02 18:19 | XMS_ITS ---
:1995 Author Care Team Providers Name Role Phone JARRED GARCIA Primary Care Provider Unavailable Allergies Code Code System Name Reaction Severity Status Onset NKDA ? Medications Name Status Start Date Stop Date ? ? albuterol sulfate HFA 90 mcg/actuation aerosol inhaler Active ? Not available amoxicillin 875 mg tablet Completed ? 2019 TK 1 T PO Q 12 H amoxicillin 875 mg-potassium clavulanate 125 mg tablet Completed ? 06/05/2020 TK 1 T PO BID cefdinir 300 mg capsule Completed ? 03/01/20 18 cephalexin 500 mg capsule Completed ? 2019 TK ONE C PO TID TAT citalopram 10 mg tablet Completed ? 06/05/20 20 citalopram 20 mg tablet Completed ? 06/05/20 20 TK 1 T PO QD DOK 100 mg capsule Completed ? 06/05/2020 TK ONE C PO BID X 10 DAYS Estarylla 0.25 mg-35 mcg tablet Completed ? 06/05/2020 hydrocodone 5 mg-acetaminophen 325 mg tablet Completed ? 06/05/2020 TK 1 T PO Q 6 H PRF SEVERE PAIN ibuprofen 800 mg tablet Completed ? 06/05/20 20 Lo Loestrin Fe 1 mg-10 mcg (24)/10 mcg (2) tablet Completed ? 06/05/2020 TK 1 T PO QD methotrexate sodium 25 mg/mL injection solution Completed ? 06/05/2020 Take 50 mg by injection route. tobramycin 0.3 % eye drops Completed ? 03/01 Problems No Known Problems Procedures Date Name Performed by ? 05/20/2020 Salpingo-oophorectomy Information not av ailable ? Other Information not avai lable Notes: 2016 wisdom teeth removed
--- OUTSIDE RECORDS SUMMARY | 2022-06-02 18:19 | XMS_ITS | Encounter Summary ---
:1995 Author Care Team Providers Name Role Phone Rain STERN Primary Care Provider [phone] Reason for Visit NST [id number] EDC 07/08/2022 LMP 09/17/2021 Assessment and Plan 1. growth restriction ? non-stress test Discussion Note: None recorded.Patient [...] P ? Ob Routine 07/09/2022 10:30AM Becky spear CNM ? Nst 07/09/2022 10:00AM Nst, , EQUI P ? Nst 07/13/2022 10:30AM Nst, , EQUI P ? Ob Routine 07/16/2022 10:30AM Becky spear CNM ? Nst 07/16/2022 10:00AM Nst, , EQUI P ? 3Hr Glucose on or around Danya miller MD 08/19/2022 ? [facility] on or around Jesika smith, 10/27/2022 [facility]- Lab
--- OUTSIDE RECORDS SUMMARY | 2022-06-02 18:19 | XMS_ITS | Encounter Summary ---
:1995 Author Care Team Providers Name Role Phone Rain STERN Primary Care Provider [phone] Reason for Visit None recorded. Assessment and Plan 1. condition affecting obstetrica l care of mother ? US, obstetric, biophysical profile + non-stress test Discussion Note: None recorded.Patient educational [...] EQUI P ? Ob Routine 07/16/2022 10:30AM SEBASTIAN DiazM ? Nst 07/16/2022 10:00AM Nst, , EQUI P ? 3Hr Glucose on or around Danya miller MD 08/19/2022 ? [facility] on or around Jesika smith,
--- OUTSIDE RECORDS SUMMARY | 2022-06-02 18:19 | XMS_ITS | Encounter Summary ---
:1995 Author Care Team Providers Name Role Phone Rain STERN Primary Care Provider [phone] Reason for Visit None recorded. Assessment and Plan 1. Gestational diabetes mellitus, class A>1< ? non-stress test Discussion Note: None recorded.Patient [...] Woman-est on or around Jesika smith, 10/27/2022 [facility]- Lab
--- OUTSIDE RECORDS SUMMARY | 2022-06-02 18:19 | XMS_ITS | Encounter Summary ---
:1995 Author Care Team Providers Name Role Phone Rain STERN Primary Care Provider [phone] Reason for Visit OB visit Assessment and Plan 1. Routine care 2. Hypolipoproteinemia Discussion Note: None recorded.Patient educational handouts: No [...] or around 08/19/2022 Danya Rankin MD ? [facility] on or around 10/27/2022 [facility]- Lab
--- OUTSIDE RECORDS SUMMARY | 2022-06-02 18:19 | XMS_ITS | Encounter Summary ---
:1995 Author Care Team Providers Name Role Phone Rain STERN Primary Care Provider [phone] Reason for Visit None recorded. Assessment and [...]
--- OUTSIDE RECORDS SUMMARY | 2022-06-02 18:19 | XMS_ITS | Encounter Summary ---
:1995 Author Care Team Providers Name Role Phone Rain STERN Primary Care Provider [phone] Reason for Visit OB visit Assessment and Plan 1. Bicornuate uterus 2. Hypolipoproteinemia 3. Vitamin D deficiency ? vitamin D, 25-hydroxy, total, serum 4. Hypothyroidism ? levothyroxine 50 mcg tablet Discussion Note: None recorded.Patient educational handouts: No [...] P ? Ob Routine 07/16/2022 10:30AM Becky E Teresa ngle, CNM ? Nst 07/16/2022 10:00AM Nst, , EQUI P ? 3Hr Glucose on or around Danya miller MD
--- OUTSIDE RECORDS SUMMARY | 2022-06-02 18:19 | XMS_ITS | Encounter Summary ---
:1995 Author Care Team Providers Name Role Phone Rain STERN Primary Care Provider [phone] Reason for Visit OB visit OB [id number] EDC 07/08/2022 LMP 09/17/2021 Assessment and Plan Assessment Note Patient is _32__weeks . Discuss ed plan. 1. Routine care 2. Hypothyroidism ? TSH, serum or plasma Discussion Note: None recorded.Patient educational handouts: No [...]
--- OUTSIDE RECORDS SUMMARY | 2022-06-02 18:19 | XMS_ITS | Encounter Summary ---
:1995 Author Care Team Providers Name Role Phone Rain STERN Primary Care Provider [phone] Reason for Visit None recorded. Assessment and [...]
--- OUTSIDE RECORDS SUMMARY | 2022-06-02 18:19 | XMS_ITS | Encounter Summary ---
:1995 Author Care Team Providers Name Role Phone Rain STERN Primary Care Provider [phone] Reason for Visit OB visit OB [id number] EDC 07/08/2022 LMP 09/17/2021 Assessment and Plan Assessment Note Patient is _33__weeks . Discuss ed plan. 1. Routine care [...]
--- OUTSIDE RECORDS SUMMARY | 2022-06-02 18:19 | XMS_ITS | Encounter Summary ---
:1995 Author Care Team Providers Name Role Phone Rain STERN Primary Care Provider [phone] Reason for Visit OB visit Assessment and Plan 1. Routine care 2. Gestational diabetes mellitus Discussion Note: None recorded.Patient educational handouts: No [...]
--- OUTSIDE RECORDS SUMMARY | 2022-06-02 18:19 | XMS_ITS | Encounter Summary ---
:1995 Author Care Team Providers Name Role Phone Rain STERN Primary Care Provider [phone] Reason for Visit None recorded. Assessment and [...]
--- OUTSIDE RECORDS SUMMARY | 2022-06-02 18:20 | XMS_ITS ---
[...] aerosol inhaler Active ? Not available amoxicillin 250 mg capsule Unknown ? Not a vailable amoxicillin 875 mg tablet Completed ? 2018 TK 1 T PO Q 12 H amoxicillin 875 mg-potassium clavulanate 125 mg tablet Completed ? 08/09/2019 TK 1 T PO BID biotin Completed ? 08/09/2019 takes daily cefdinir 300 mg capsule Completed ? 06/26/20 18 cephalexin 500 mg capsule Completed ? 2018 TK ONE C PO TID TAT citalopram 10 mg tablet Completed ? 08/07/20 18 citalopram 20 mg tablet Completed ? 08/09/20 19 TK 1 T PO QD DOK 100 mg capsule Completed ? 08/13/2020 TK ONE C PO BID X 10 DAYS Estarylla 0.25 mg-35 mcg tablet Completed ? 08/09/2019 hydrocodone 5 mg-acetaminophen 325 mg tablet Completed ? 08/13/2020 TK 1 T PO Q 6 H PRF SEVERE PAIN ibuprofen 800 mg tablet Active ? Not avai lable Lo Loestrin Fe 1 mg-10 mcg (24)/10 mcg (2) tablet Completed ? 08/28/2018 TK 1 T PO QD naproxen sodium 550 mg tablet Unknown ? No t available oseltamivir 75 mg capsule Completed ?
--- OUTSIDE RECORDS SUMMARY | 2022-06-02 18:35 | XMS_ITS | Encounter Summary ---
:1995 Author Care Team Providers Name Role Phone Rain STERN Primary Care Provider [phone] Reason for Visit OB visit OB [id number] EDC 07/08/2022 LMP 09/17/2021 Assessment and Plan [...]
--- OUTSIDE RECORDS SUMMARY | 2022-06-02 18:35 | XMS_ITS | Encounter Summary ---
:1995 Author Care Team Providers Name Role Phone Rain STERN Primary Care Provider [phone] Reason for Visit None recorded. Assessment and [...] EQUI P ? Ob Routine 07/16/2022 10:30AM SEBASTAIN DiazM ? Nst 07/16/2022 10:00AM Nst, , EQUI P ? 3Hr Glucose on or around Danya miller MD 08/19/2022 ? [facility] on or around Jesika smith,
--- OUTSIDE RECORDS SUMMARY | 2022-06-02 18:35 | XMS_ITS ---
:1995 Author Care Team Providers Name Role Phone DEVORA STERN Primary Care Provider [phone] Allergies Code Code System Name Reaction Severity [...]
--- OUTSIDE RECORDS SUMMARY | 2022-06-02 18:35 | XMS_ITS | Encounter Summary ---
:1995 Author Care Team Providers Name Role Phone Rain STERN Primary Care Provider [phone] Reason for Visit None recorded. Assessment and [...] Woman-est on or around Jesika smith, 10/27/2022 [facility]- Lab
--- OUTSIDE RECORDS SUMMARY | 2022-06-02 18:35 | XMS_ITS | Encounter Summary ---
:1995 Author Care Team Providers Name Role Phone Rain STERN Primary Care Provider [phone] Reason for Visit None recorded. Assessment and [...]
--- OUTSIDE RECORDS SUMMARY | 2022-06-02 18:35 | XMS_ITS | Encounter Summary ---
:1995 Author Care Team Providers Name Role Phone Rain STERN Primary Care Provider [phone] Reason for Visit nst [id number] EDC 07/08/2022 Assessment and Plan 1. Hypothyroidism [...]
--- OUTSIDE RECORDS SUMMARY | 2022-06-02 18:35 | XMS_ITS | Encounter Summary ---
:1995 Author Care Team Providers Name Role Phone Rain STERN Primary Care Provider [phone] Reason for Visit NST [id number] EDC 07/08/2022 LMP 09/17/2021 Assessment and Plan [...] Woman-est on or around Jesika smith, 10/27/2022 [facility]- Lab
--- OUTSIDE RECORDS SUMMARY | 2022-06-02 18:36 | XMS_ITS | Encounter Summary ---
:1995 Author Care Team Providers Name Role Phone Rain STERN Primary Care Provider [phone] Reason for Visit OB visit Assessment and [...]
--- OUTSIDE RECORDS SUMMARY | 2022-06-02 18:36 | XMS_ITS | Encounter Summary ---
:1995 Author Care Team Providers Name Role Phone Rain STERN Primary Care Provider [phone] Reason for Visit OB visit OB [id number] EDC 07/08/2022 LMP 09/17/2021 Assessment and Plan [...]
--- OUTSIDE RECORDS SUMMARY | 2022-06-02 18:36 | XMS_ITS | Encounter Summary ---
:1995 Author Care Team Providers Name Role Phone Rain STERN Primary Care Provider [phone] Reason for Visit OB visit OB [id number] EDC 07/08/2022 LMP 09/17/2021 Assessment and Plan [...]
--- OUTSIDE RECORDS SUMMARY | 2022-06-02 18:36 | XMS_ITS | Encounter Summary ---
:1995 Author Care Team Providers Name Role Phone Rain STERN Primary Care Provider [phone] Reason for Visit None recorded. Assessment and [...]
--- OUTSIDE RECORDS SUMMARY | 2022-06-02 18:36 | XMS_ITS | Encounter Summary ---
:1995 Author Care Team Providers Name Role Phone Rain STERN Primary Care Provider [phone] Reason for Visit None recorded. Assessment and [...]
--- OUTSIDE RECORDS SUMMARY | 2022-06-02 18:36 | XMS_ITS | Encounter Summary ---
:1995 Author Care Team Providers Name Role Phone Rain STERN Primary Care Provider [phone] Reason for Visit None recorded. Assessment and [...]
--- OUTSIDE RECORDS SUMMARY | 2022-06-02 18:36 | XMS_ITS | Encounter Summary ---
:1995 Author Care Team Providers Name Role Phone Rain STERN Primary Care Provider [phone] Reason for Visit OB visit Assessment and [...] Two, TECH ? Ob Routine 06/25/2022 11:00AM Bceky E Teresa ngle, CNM ? Nst 06/25/2022 [...]
--- OUTSIDE RECORDS SUMMARY | 2022-06-02 18:36 | XMS_ITS | Encounter Summary ---
:1995 Author Care Team Providers Name Role Phone Rain STERN Primary Care Provider [phone] Reason for Visit None recorded. Assessment and [...]
--- OUTSIDE RECORDS SUMMARY | 2022-06-02 18:36 | XMS_ITS | Encounter Summary ---
:1995 Author Care Team Providers Name Role Phone Rain STERN Primary Care Provider [phone] Reason for Visit OB visit Assessment and [...]
[2022-06-02 19:15] LABS: Basophils Percent Auto 0.1 % (0.2-1.2); Eosinophils Percent Auto 0.2 % (0-4.4); Hematocrit 35.1 % (37.0-47.0); Hemoglobin 11.4 g/dL (12.0-15.0); Immature Granulocyte Absolute 0.06 K/mm3 (0.00-0.031); Immature Granulocyte Percent A 0.5 % (0-0.5); Lymphocytes Absolute Auto 1.84 K/mm3 (0.9-3.2); Lymphocytes Percent Auto 13.9 % (18.3-44.2); Mean Corpuscular HGB Conc 32.5 g/dl (32-36); Mean Corpuscular Hemoglobin 30.5 pg (26-34); Mean Corpuscular Volume 93.9 fl (80-100); Mean Platelet Volume 12.1 fl (7.4-10.4); Monocytes Absolute Auto 0.8 K/mm3 (0.1-0.6); Monocytes Percent Auto 6.1 % (2.6-8.5); Neutrophils Absolute Auto 10.5 K/mm3 (1.3-6.7); Neutrophils Percent Auto 79.2 % (45.5-73.1); Platelet Count Result 183 k/mm3 (150-375); Red Blood Count 3.74 M/mm3 (4.2-5.4); Red Cell Distribution Width 12.8 % (11.5-14.5); White Blood Count 13.3 K/mm3 (4.5-10.0)
[2022-06-02] MEDS: AMPICILLIN 2 GM/NS 100 ML 2 GM/100 ML BAG IVPB (19:30)
[2022-06-02] MEDS: LACTATED RINGERS 1,000 ML 125 ML IV CONT ×2 (19:45→21:02)
--- NOTE | 2022-06-02 20:38 | WPDANESEPP ---
Anes - Eval Pre Procedure Procedure: labor epidural Date/Time: 06/02/22 20:38 Surgeon: mariela Preop Diagnosis: pain during labor Pre Op Diagnosis: Contractions Patient Data Age: 26 Gender: F Height: Weight: Last Vital Signs Pulse 92 06/02/22 20:36 BP 121/55 L 06/02/22 20:36 Pulse Ox 100 06/02/22 20:33 O2 Del Method Room Air 06/02/22 19:14 Allergies Allergy/AdvReac Type Severity Reaction Status Date / Time No Known Allergies Allergy Verified 12/19/21 21:57 Home Medications Medication Instructions Recorded Confirmed Type levothyroxine 50 mcg tablet 50 mcg PO DAILY 12/19/21 01/30/22 History acetaminophen 500 mg tablet 1,000 mg PO Q6H PRN Headache or 01/30/22 01/30/22 History (Tylenol Extra Strength) pain aspirin 81 mg tablet 81 mg PO DAILY 01/30/22 01/30/22 History citalopram 20 mg tablet 20 mg PO DAILY 01/30/22 01/30/22 History vit no.95-ferrous 1 tablet PO DAILY 01/30/22 01/30/22 History fumarate 28 mg-folic acid 800 mcg tablet () Laboratory Tests 06/02/22 06/02/22 19:09 19:09 WBC 13.3 K/mm3 H K/mm3 (4.5-10.0) RBC 3.74 M/mm3 L M/mm3 (4.2-5.4) Hgb 11.4 g/dL L g/dL (12.0-15.0) Hct 35.1 % L % (37.0-47.0) MCV 93.9 fl fl (80-100) MCH 30.5 pg pg (26-34) MCHC 32.5 g/dl g/dl (32-36) RDW 12.8 % % (11.5-14.5) Plt Count 183 k/mm3 k/mm3 (150-375) MPV 12.1 fl H fl (7.4-10.4) Immature Gran % (Auto) 0.5 % % (0-0.5) Neut % (Auto) 79.2 % H % (45.5-73.1) Lymph % (Auto) 13.9 % L % (18.3-44.2) [place] % (Auto) 6.1 % % (2.6-8.5) Eos % (Auto) 0.2 % % (0-4.4) Baso % (Auto) 0.1 % L % (0.2-1.2) Lymph # (Auto) 1.84 K/mm3 K/mm3 (0.9-3.2) [place] # (Auto) 0.8 K/mm3 H K/mm3 (0.1-0.6) Eos # (Auto) 0.0 K/mm3 K/mm3 (0-0.3) Baso # (Auto) 0.0 K/mm3 K/mm3 (0.0-0.1) Abs Immat Gran (auto) 0.06 K/mm3 H K/mm3 (0.00-0.031) Absolute Neuts (auto) 10.5 K/mm3 H K/mm3 (1.3-6.7) Absolute Nucleated RBC 0.0 K/mm3 K/mm3 (0.0-0.012) Nucleated RBC % 0.0 % % (0.0-0.2) RPR Pending Patient hx anesthesia problems: none Family hx anesthesia problems: none Results Review: All pre-operative results and documents have been reviewed as part of the pre-operative evaluation. [facility] Past Medical History Medical History (Updated 06/02/22 @ 20:39 by Arelis Liao CRNA) Anxiety Depression Hypothyroid Obesity (BMI 30-39.9) Patient denies medical problems Surgical History Surgical History No significant past surgical history Social History Social History Smoking status: Current every day smoker Tobacco type: cigarettes Second hand tobacco smoke exposure: Yes Gender identity (if verbalized by the patient): Female Spiritual care concerns: No Exam Day of Procedure 06/02/22 20:38
[2022-06-02 21:18] LABS: Glucose Point of Care 96 mg/dl (65-105)
[2022-06-03] VITALS (19 sets, daily range): BP systolic 90–178; BP diastolic 39–149; PULSE 56–108; RESP 16–18; TEMP 36.8–37.1; O2SAT 97–100
--- NOTE | 2022-06-03 00:12 | PM.OBPRVD ---
OB - Delivery Note Procedure Delivery date: 06/02/22 Events: Gestational Diabetes (Insulin) Delivery monitor: External FHT and External Uterine Route of delivery: Episiotomy description: None Laceration Description: Perineal - 1st Degree Delivery repair: vicryl Specimen: Yes Quantitative Blood Loss (ml): 175 Anesthesia type: Epidural Disposition: Floor Baby Date of : 06/02/22 Time of : 23:55 Weeks of gestation at delivery: 34 gender: Male Weight (pounds): 5 Weight (ounces): 10 presentation: vertex position: Left Occiput Anterior Placenta delivery description: Spontaneous Cord Vessel Description: 3 Vessels and Clamped/Cut score one minute: 8 score five minutes: 9
--- NOTE | 2022-06-03 03:23 | OBPPTRN ---
Patient transferred to post room #283 via W/C. Support person present. Oriented to unit, room, information board, rooming in, admission packet and security measures. Patient verbalizes understanding.
[2022-06-03 07:25] LABS: Rapid Plasma Reagin Non-Reactive (NonReactive)
--- NOTE | 2022-06-03 08:03 | WPDANLDPN2 ---
Anes-Prog Note L&D Date/Time: 06/03/22 08:03 Epidural/Spinal procedure site: clean & non-tender Neuro status: Neuro function grossly intact. Cardiovascular status: normal Respiratory status: normal Airway patency: baseline Mental status: baseline Post-Op hydration status: normal Vital Signs: Last Vital Signs Temp 36.9 C 06/03/22 03:30 Pulse 86 06/03/22 03:30 Resp 18 06/03/22 03:30 BP 113/60 06/03/22 03:30 Pulse Ox 99 06/02/22 23:29 O2 Del Method Room Air 06/03/22 03:30 Pain score (VAS): 2 I/O: Intake & Output 06/02/22 06/03/22 06/03/22 23:59 07:59 15:59 Intake Total 1000 Output Total 175 200 Balance 825 -200 Post-procedural complaints: none Patient feedback: Patient satisfied with anesthetic care.
--- NOTE | 2022-06-03 10:19 | P.PNOB_ITS ---
OB - PN: Subj Subjective Date/time seen: 06/03/22 10:19 s/p vaginal delivery day 1 OB - PN: Obj Data Labs CBC & Chem 7: 06/02/22 19:09 Labs: Laboratory Results - last 24 hr 06/02/22 06/02/22 06/02/22 19:09 19:09 19:09 WBC 13.3 H RBC 3.74 L Hgb 11.4 L Hct 35.1 L MCV 93.9 MCH 30.5 MCHC 32.5 RDW 12.8 Plt Count 183 MPV 12.1 H Immature Gran % (Auto) 0.5 Neut % (Auto) 79.2 H Lymph % (Auto) 13.9 L [place] % (Auto) 6.1 Eos % (Auto) 0.2 Baso % (Auto) 0.1 L Lymph # (Auto) 1.84 [place] # (Auto) 0.8 H Eos # (Auto) 0.0 Baso # (Auto) 0.0 Abs Immat Gran (auto) 0.06 H Absolute Neuts (auto) 10.5 H Absolute Nucleated RBC 0.0 Nucleated RBC % 0.0 POC Capillary Glucose RPR Non-reactive Blood Type O Positive Antibody Screen Negative 06/02/22 19:34 WBC RBC Hgb Hct MCV MCH MCHC RDW Plt Count MPV Immature Gran % (Auto) Neut % (Auto) Lymph % (Auto) [place] % (Auto) Eos % (Auto) Baso % (Auto) Lymph # (Auto) [place] # (Auto) Eos # (Auto) Baso # (Auto) Abs Immat Gran (auto) Absolute Neuts (auto) Absolute Nucleated RBC Nucleated RBC % POC Capillary Glucose 96 RPR Blood Type Antibody Screen OB - PN A/P Plan day: 1 Plan: routine care Time Spent With Patient Time: Total time spent is greater than 50% in coordination of care (as documented) at patient's floor/unit and/or counseling patient: Review of Systems Review of Systems: All systems reviewed & are unremarkable except as noted in HPI and below Exam Const: General: cooperative, healthy appearing and comfortable
--- NOTE | 2022-06-03 10:31 | PC.NURSE ---
0945 - Introductions were made, then consulted with patient to assess needs related to . Mother led the conversation with her?plans to feed?her and the?experience so far. Resources provided for inpatient and outpatient services using a resource guide and mom/baby guide. Mother voiced understanding of information and will call if there is a request for assistance. Reported to primary RN.
[2022-06-04 04:54] LABS: Hematocrit 29.2 % (37.0-47.0); Hemoglobin 9.6 g/dL (12.0-15.0)
[2022-06-04] MEDS: LEVOTHYROXINE SODIUM 50 MCG TABLET PO (06:51)
--- NOTE | 2022-06-04 07:27 | PM.OBPNVD ---
OB - PN: Subj Subjective Date/time seen: 06/04/22 07:27 s/p vaginal delivery day 2 OB - PN: Obj Data Labs CBC & Chem 7: 06/04/22 04:30 Labs: Laboratory Results - last 24 hr 06/04/22 04:30 Hgb 9.6 L Hct 29.2 L OB - PN A/P Plan day: 2 Plan: routine care and discharge home Time Spent With Patient Time: Total time spent is greater than 50% in coordination of care (as documented) at patient's floor/unit and/or counseling patient: Review of Systems Review of Systems: All systems reviewed & are unremarkable except as noted in HPI and below Exam Const: General: cooperative, healthy appearing and comfortable
--- NOTE | 2022-06-04 07:29 | PM.OBDSVD ---
DS: Admitting Diagnosis Discharge Date 06/04/22 Admitting Diagnosis labor OB - DS: Summary OB Procedures : None OB Procedures Intrapartum: Spontaneous Vag Delivery OB Procedures: : None Time Spent with Patient Time attestation: Total time spent providing and/or coordinating discharge services: DS: Data Data Completed and Pending Pending studies at discharge: Pending at discharge 06/03/22 04:37 Surgical [PTH] Routine Labs on day of discharge: Labs from last 24 hours 06/04/22 04:30 Hgb 9.6 L Hct 29.2 L Discharge Plan Discharge Attending physician on discharge: Elisa Morrell Discharging Clinician: Becky Teran Patient Disposition: Home, Self-Care Activity: pelvic rest Diet: regular Patient Instructions: Antibiotic Form, How to Stop Smoking (GEN), Cigarette Smoking and Your Health (GEN), Secondhand Smoke Exposure in Children (GEN) Stand Alone Forms: General Discharge Information Follow-up/Referrals: Becky Teran, CNM [Certified Nurse Allopathic Doctor] - 4 Weeks Discharge Medications: New ibuprofen 600 mg Tablet 600 mg PO Q6H PRN (Reason: Cramping) Qty: 60 0RF Continued citalopram 20 mg tablet 20 mg PO DAILY PNV cmb#95-ferrous fumarate-FA [] 28 mg iron- 800 mcg Tablet 1 tablet PO DAILY levothyroxine 50 mcg tablet 50 mcg PO DAILY Discontinued aspirin 81 mg Tablet 81 mg PO DAILY acetaminophen [Tylenol Extra Strength] 500 mg Tablet 1,000 mg PO Q6H PRN (Reason: Headache or pain) Date of admission: 06/02/22 18:11 Primary Care Provider: Tasha,Rain Admitting Provider: Elisa Morrell Attending physician on admission: Elisa Morrell Condition: Stable
[2022-06-04 08:30] VITALS: BP 103/61; PULSE 70; RESP 18; TEMP 37.2; O2SAT 100
[2022-06-04] MEDS: MULTIVIT/MIN/PREN/FOL AC/IRON TABLET 1 TAB PO (09:03)
[2022-06-04] MEDS: CITALOPRAM HYDROBROMIDE 20 MG TABLET PO (09:04)
[2022-06-04] MEDS: POLYSACCHARIDE IRON COMPLEX 150 MG CAPSULE PO (09:04)
[2022-06-04] MEDS: DOCUSATE SODIUM 100 MG CAPSULE PO (09:06)
--- NOTE | 2022-06-04 11:02 | PC.NURSE ---
[id number] Introductions were made, then consulted with patient to assess needs related to . Mother led the conversation with her?plans to feed?her infant using the pump and feeding method. Reviewed pumping 8 times in 24 hours with 1-2 times at night for milk production.Resources provided for inpatient and outpatient services using a resource guide and mom/baby guide. Mother voiced understanding of information and will call if there is a request for assistance. Reported to primary RN.
--- NOTE | 2022-06-04 17:58 | PC.NURSE ---
Pt discharged to a no-care bed, baby staying for care. Discharge instructions given, pt. verbalizes understanding.
[2022-06-07 10:13] VITALS: BP 108/79; PULSE 93; RESP 20; TEMP 37.2
== END 2022-06-04 17:58 | disposition home or self-care (01) | DRG 807 ==
LOC: ANHOBPP 18:33 → ANHLDR 19:16 → ANHOB2 06-03 03:26
PROVIDERS: Advanced Practice Midwife; Admitting Provider Obstetrics & Gynecology; PCP Physician Assistant; Visit Provider Obstetrics & Gynecology
DX: O60.14X0 Preterm labor third trimester with preterm delivery third trimester, not applicable or unspecified (principal); Z37.0 Single live birth; O24.424 Gestational diabetes mellitus in childbirth, insulin controlled; O70.0 First degree perineal laceration during delivery; Z3A.34 34 weeks gestation of pregnancy
CPT/HCPCS: 36415; 82948; 84112; 85014; 85018; 85025; 86592; 86850; 86900; 86901; 88307; A9270; J0290; J2795; J7120

== ENCOUNTER 2025-08-19 16:23 | Emergency (ER) | payer OTHER, SELFPAY ==
--- NOTE | ~2025-08-19 | XR_ITS ---
EXAMINATION: XR ankle RT min 3V DATE: 08/19/2025 16:40 INDICATION: Twisting right ankle injury TECHNIQUE: Anteroposterior, oblique, mortise, and lateral views of the right ankle were obtained. COMPARISON: None. FINDINGS: Alignment is normal. No fracture. Joint spaces are well maintained. Small Achilles and plantar calcaneal spurs. No ankle joint effusion. Soft tissue swelling about the lateral malleolus. IMPRESSION: 1. No acute osseous abnormality. Reviewed, dictated and finalized at location A.
[2025-08-19 16:32] VITALS: BP 117/71; PULSE 84; RESP 18; TEMP 36.4; O2SAT 97
--- NOTE | 2025-08-19 16:32 | ED_ITS ---
HPI - Extremity Injury (Lower) General Stated Complaint: Right Ankle Pain Time Seen by Provider: 08/19/25 16:25 Source: patient Mode of arrival: ambulatory Limitations: no limitations History of Present Illness HPI Narrative: Patient is a 29-year-old female who presents with right ankle pain after twisting it 5 days ago. Patient still able ambulate without assistance. Denies any numbness, tingling or weakness to the wrist the foot. Has been taking Tylenol and ibuprofen. Related Data Home Medications ?Medication ?Instructions ?Recorded ?Confirmed ?Last Taken ?Type levothyroxine 50 mcg tablet 50 mcg PO DAILY 12/19/21 0 01/30/22 01/30/22 09:00 History vit no.95-ferrous 1 tablet PO DAILY 01/30/22 01/30/22 01/30/22 09:00 History fumarate 28 mg-folic acid 800 mcg tablet () bupropion HCl 150 mg 24 hr tablet, mg PO 08/19/25 Unk nown History extended release fluoxetine 10 mg capsule mg 08/19/25 Unknown History Allergies Allergy/AdvReac Type Severity Reaction Status Date / Time No Known Allergies Allergy Verified 08/19/25 16:48 Review of Systems Review of Systems: All systems reviewed & are unremarkable except as noted in HPI and below Constitutional: Constitutional: Denies body ache(s), Denies chills, Denies fatigue, Denies fever(s), Denies headache(s), Denies malaise and Denies weakness Eyes: Eyes: Denies blurry vision, Denies irritation and Denies loss of vision ENT: Denies otalgia, Denies headache(s), Denies nasal discharge, Denies sinus pain and Denies sore throat Cardiovascular: Cardiovascular: Denies chest pain, Denies irregular heart rhythm and Denies dyspnea Respiratory: Respiratory: Denies dyspnea Gastrointestinal: Gastrointestinal: Denies abdominal pain, Denies melena, Denies hematochezia, Denies diarrhea, Denies nausea and Denies vomiting Musculoskeletal: Musculoskeletal: Denies back pain, Denies myalgias and Reports arthralgias Integumentary/Breasts: Skin/Breast: Denies pruritus and Denies rash Neurologic: Denies headache(s), Denies loss of vision and Denies weakness Psychiatric: Psychiatric: Reports no additional psychiatric complaints Endocrine: Endocrine: Denies fatigue PMFSH Past Medical History Medical History Depression Anxiety Hypothyroid Obesity (BMI 30-39.9) Patient denies medical problems Surgical History Surgical History No significant past surgical history Social History Social History Smoking status: Current every day smoker Tobacco type: cigarettes Second hand tobacco smoke exposure: Yes Gender identity (if verbalized by the patient): Female Spiritual care concerns: No Comments At time of signature, agree with nursing past medical, surgical, social and family history. There is no relevant family history pertinent to the presenting complaint. Exam Const: General: cooperative, healthy appearing, comfortable, no acute distress and well nourished Nutritional Appearance: well nourished Orientation/consciousness: patient oriented x3 Limitations: no limitations HENMT: Head: normal to inspection, normocephalic and atraumatic Ears: hearing grossly normal bilaterally and external ears normal Face/Nose/Sinus: Normal external nose present, normal facial exam and face symmetric Face and sinus: normal facial exam and face symmetric Mouth: Yes lip normal Eyes: General: appearance normal, both eyes and all related structures Alignment and Position: alignment normal and position normal Periorbital: periorbital findings normal Eyelids: eyelids normal Pupils: Equal, round and reactive pupils present EOM: EOMs intact bilaterally Neck: Neck: normal visual inspection, full ROM and supple Chest: Chest palpation & inspection: normal inspection of the chest Resp: Effort & Inspection: normal respiratory effort and able to speak in complete sentences Auscultation: clear to auscultation bilaterally Cardio: Rate: regular rate Rhythm: regular rhythm Heart sounds: S1 normal heart sound present and S2 normal heart sound present GI: Inspection: normal to inspection Skin: General skin exam: normal color and no rashes or lesions noted Neuro: General: patient oriented x3 and moves all extremities Cranial nerves: Yes Equal, round and reactive pupils present Speech: normal speech Gait exam (Neuro): Normal gait present Extrem: General: normal to inspection, full ROM and no edema Right lower extremity: knee Details: normal to inspection and normal ROM; no tenderness and no swelling, ankle Details: normal to inspection, tenderness Location: of the lateral malleolus, swelling Details: laterally and normal ROM; no ecchymosis and achilles tendon exam normal and foot Details: normal capillary refill, normal to inspection and toes with normal ROM; no tenderness Psych: Appearance: grossly normal and well kempt Mental Status: mental status grossly normal Speech and movement: Normal speech and movement present Affect: normal affect Attitude: cooperative Thought process: Normal thought process present Course Course Emergency Course: Patient is aware of diagnosis, understands and agrees to treatment plan. Anticipatory guidance given. Patient agrees to follow-up as directed and is aware of reasons to seek care at the emergency department. Portions of this record may have been created with voice recognition software Level of Care: Express Care Visit Vital Signs Vital signs: Reviewed MDM - Extremity Injury (Lower) MDM Narrative Medical decision making narrative: Patient is able to bear weight and ambulate without pain. No surface of trauma or obvious effusion. No overlying erythema or warmth. The R/L ankle is with/without obvious asymmetry or deformity when comparing to the R/L. Patient has no pain with dorsiflexion, plantar flexion, eversion, and inversion. Tenderness to lateral/medial ankle on palpation. Motor and neurovascular status intact. Les wrap applied Pt well hydrated appearing, in no respiratory distress, hemodynamically stable. Recommend supportive care. The patient is stable at time of discharge the clinical impression was discussed and the patient was given the opportunity to ask questions, which were addressed as completely as possible given the information available at present. Anticipatory guidance and return to care precautions were discussed and the importance of primary care follow-up was stressed and encouraged. The patient voiced understanding of the plan, indications to return, and the need for follow-up. Exam findings show no acute concerns or changes Patient is appropriate for outpatient treatment and follow-up. Differential Diagnosis Differential diagnosis: Likely ankle sprain and strain and ankle fracture Medical Records Attestation: I reviewed the patient's medical records. Imaging Data Radiologist's impression: EXAMINATION: XR ankle RT min 3V DATE: 08/19/2025 16:40 INDICATION: Twisting right ankle injury TECHNIQUE: Anteroposterior, oblique, mortise, and lateral views of the right ankle were obtained. COMPARISON: None. FINDINGS: Alignment is normal. No fracture. Joint spaces are well maintained. Small Achilles and plantar calcaneal spurs. No ankle joint effusion. Soft tissue swelling about the lateral malleolus. IMPRESSION: 1. No acute osseous abnormality. Reviewed, dictated and finalized at location A. Discharge Plan Discharge Clinical Impression: Ankle sprain Qualifiers: Encounter type: initial encounter Involved ligament of ankle: unspecified ligament Laterality: left Qualified Code(s): S93.402A - Sprain of unspecified ligament of left ankle, initial encounter Patient Disposition: Home Condition: Stable Instructions: Ankle Sprain (ED) Additional Instructions: Xray showed no fracture. Minimize activities that aggravate the condition The RICE protocol. Follow the RICE protocol as soon as possible after your injury: Rest your ankle by not walking on it. Ice should be immediately applied to keep the swelling down. It can be used for 20 to 30 minutes, three or four times daily. Do not apply ice directly to your skin. Compression dressings, bandages or les-wraps will immobilize and support your injured ankle. Elevate your ankle above the level of your heart as often as possible during the first 48 hours. Medication: Nonsteroidal anti-inflammatory drugs (NSAIDs) such as ibuprofen and naproxen can help control pain and swelling. Because they improve function by both reducing swelling and controlling pain, they are a better option for mild sprains than narcotic pain medicines. Please schedule a follow-up visit with your personal physician for further evaluation and treatment within 1week OR If your symptoms persist, change or worsen significantly before you can contact your personal physician then please, without delay, go to the emergency department for further evaluation. Patient Language: Green[place]ic Prescriptions: No Action citalopram 20 mg tablet 20 mg PO DAILY PNV no.95-ferrous fumarate-FA [] 28 mg iron- 800 mcg Tablet 1 tablet PO DAILY levothyroxine 50 mcg tablet 50 mcg PO DAILY ibuprofen 600 mg Tablet 600 mg PO Q6H PRN (Reason: Cramping) Qty: 60 0RF Follow-up/Referrals: Lori,ARJUN Rodrigez [Primary Care Provider, Unknown] - 3 Days Time of Disposition: 17:23
== END 2025-08-19 17:35 | disposition home or self-care (01) ==
PROVIDERS: Emergency Provider Nurse Practitioner Family; PCP Physician Assistant
DX: S93.401A Sprain of unspecified ligament of right ankle, initial encounter (principal); X50.1XXA Overexertion from prolonged static or awkward postures, initial encounter; F17.210 Nicotine dependence, cigarettes, uncomplicated; E03.9 Hypothyroidism, unspecified; E66.9 Obesity, unspecified; Z68.36 Body mass index [BMI] 36.0-36.9, adult; F41.9 Anxiety disorder, unspecified; F32.A Depression, unspecified
CPT/HCPCS: 73610; 99213; G0463